=== PATIENT | female | born 1980 | race Caucasian/White ===

== ENCOUNTER 2018-06-04 11:07 | Emergency (ER) | payer MEDICAID, OTHER ==
--- NOTE | 2018-06-04 11:15 | ERPHSYRPT ---
- History of Present Illness Time Seen by Provider: 06/04/18 11:14 Historian: patient, family Exam Limitations: no limitations Physician History: 38 y/o white female former methamphetamine abuser and who smokes marijuana frequently, presents with 4 to 5 day h/o worseing bilateral lower abd pain right worse than left. pts on intraabd surgery was a btl. Timing/Duration: day(s) ( 4 to 5 ) Activities at Onset: none Quality: sharpness Abdominal Pain Onset Location: RLQ, LLQ Pain Radiation: groin (right) Severity of Pain-Max: moderate Severity of Pain-Current: moderate Modifying Factors: Improves With: movement, palpation (worsens). Worsens With: coughing, urinating, vomiting Associated Symptoms: diarrhea, No back, No chest pain, No diaphoresis, No fever/ chills Previous symptoms: no prior history Allergies/Adverse Reactions: Penicillins Allergy (Verified 06/04/18 11:27) povidone-iodine [From Betadine] Allergy (Verified 06/04/18 11:27) soap [From Betadine] Allergy (Verified 06/04/18 11:27) venom-honey bee Allergy (Verified 06/04/18 11:27) - Review of Systems Constitutional: No Symptoms, No Fever, No Chills Eyes: No Symptoms Ears, Nose, & Throat: No Symptoms, Other (poor dentition) Respiratory: No Symptoms, No Cough, No Dyspnea on Exertion (ACUÑA), No Stridor, No Wheezing Cardiac: No Symptoms, No Chest Pain, No Palpitations, No Syncope Abdominal/Gastrointestinal: Abdominal Pain (blq right worse than left), Diarrhea Genitourinary Symptoms: No Symptoms, No Dysuria, No Frequency, No Hematuria Musculoskeletal: No Symptoms Skin: No Symptoms Neurological: No Symptoms, No Dizziness Psychological: No Symptoms, No Anxiety Endocrine: No Symptoms Hematologic/Lymphatic: No Symptoms Immunological/Allergic: No Symptoms All Other Systems: Reviewed and Negative - Past Medical History Neurological History: No Pertinent History ENT History: No Pertinent History Cardiac History: No Pertinent History Respiratory History: No Pertinent History Endocrine Medical History: No Pertinent History Musculoskeletal History: No Pertinent History GI Medical History: No Pertinent History History: No Pertinent History Psycho-Social History: No Pertinent History Female Reproductive Disorders: No Pertinent History - Past Surgical History Neuro Surgical History: No Pertinent History Cardiac: No Pertinent History Respiratory: No Pertinent History Gastrointestinal: No Pertinent History Genitourinary: No Pertinent History Musculoskeletal: No Pertinent History Female Surgical History: Tubal Ligation - Social History Drug Use: marijuana, methamphetamines (former) Significant Family History: no pertinent family hx - Nursing Vital Signs Nursing Vital Signs: Initial Vital Signs Temperature 98.7 F 06/04/18 11:12 Pulse Rate 91 H 06/04/18 11:12 Respiratory Rate 18 06/04/18 11:12 Blood Pressure 114/86 06/04/18 11:12 O2 Sat by Pulse Oximetry 97 06/04/18 11:12 Pain Scale Pain Intensity 8 - Physical Exam General Appearance: mild distress, alert, anxiety Eye Exam: PERRL/EOMI, eyes nml inspection Ears, Nose, Throat Exam: normal ENT inspection Neck Exam: normal inspection, non-tender, supple, full range of motion Respiratory Exam: normal breath sounds, lungs clear, airway intact, No chest tenderness, No respiratory distress, No accessory muscle use, No wheezing, No stridor Cardiovascular Exam: regular rate/rhythm, normal heart sounds, normal peripheral pulses Gastrointestinal/Abdomen Exam: soft, normal bowel sounds, tenderness (blq right > left), guarding (right side), No rebound Pelvic Exam: not done Rectal Exam: not done Back Exam: normal inspection, normal range of motion, No CVA tenderness, No vertebral tenderness Extremity Exam: normal inspection, normal range of motion, pelvis stable Neurologic Exam: alert, oriented x 3, cooperative, 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 Skin Exam: normal color, warm, dry Lymphatic Exam: No adenopathy SpO2 Interpretation: normal Oxygen Delivery: Room Air - Course Nursing assessment & vital signs reviewed: Yes Ordered Tests: Active Orders 24 hr Category Date Time Status Clean Catch Urine Specimen STAT Care 06/04/18 11:33 Active IV Insertion STAT Care 06/04/18 11:33 Active ABDOMEN AND PELVIS W CONTRAST [CT] Stat Exams 06/04/18 11:33 Completed AMYLASE Stat Lab 06/04/18 11:43 Completed CBC W DIFF Stat Lab 06/04/18 11:43 Completed CMP Stat Lab 06/04/18 11:43 Completed CULTURE,URINE Stat Lab 06/04/18 11:59 Received LIPASE Stat Lab 06/04/18 11:43 Completed Lactic Acid Stat Lab 06/04/18 11:33 Completed UA W/ MICROSCOPIC Stat Lab 06/04/18 11:59 Completed Medication Summary Generic Name Dose Route Start Last Admin Trade Name Tirso PRN Reason Stop Dose Admin Ceftriaxone Sodium/Dextrose 1 g in 50 mls @ 100 mls/hr 06/04/18 13:29 Rocephin 1 Gm-D5w 50 Ml Bag IV 06/04/18 13:58 STAT STA Discontinued Medications Generic Name Dose Route Start Last Admin Trade Name Tirso PRN Reason Stop Dose Admin Hydromorphone HCl 0.5 mg 06/04/18 11:33 06/04/18 11:50 Hydromorphone 1 Mg/Ml Ampule IV 06/04/18 11:34 0.5 mg STAT ONE Administration Hydromorphone HCl Confirm 06/04/18 11:47 Hydromorphone 1 Mg/Ml Ampule Administered 06/04/18 11:48 Dose 1 mg .ROUTE .STK-MED ONE Hydromorphone HCl 0.5 mg 06/04/18 13:30 Hydromorphone 1 Mg/Ml Ampule IV 06/04/18 13:31 STAT ONE Sodium Chloride 1,000 mls @ 999 mls/hr 06/04/18 11:33 06/04/18 11:48 Sodium Chloride 0.9% 1000 Ml IV 06/04/18 12:33 999 mls/hr .Q1H1M STA Administration Sodium Chloride Confirm 06/04/18 11:47 Sodium Chloride 0.9% 1000 Ml Administered 06/04/18 11:48 Dose 1,000 mls @ ud .ROUTE .STK-MED ONE Ondansetron HCl 4 mg 06/04/18 11:33 06/04/18 11:49 Zofran 4 Mg/2 Ml Vial IV 06/04/18 11:34 4 mg STAT ONE Administration Ondansetron HCl Confirm 06/04/18 11:45 Zofran 4 Mg/2 Ml Vial Administered 06/04/18 11:46 Dose 4 mg .ROUTE .STK-MED ONE Lab/Rad Data: Laboratory Result Diagrams 06/04/18 11:43 06/04/18 11:43 Laboratory Results 06/04/18 06/04/18 06/04/18 Range/Units 11:59 11:43 11:43 WBC 13.6 H (4.0-10.5) K/mm3 RBC 3.89 L (4.1-5.4) M/mm3 Hgb 11.9 L (12.0-16.0) gm/dl Hct 36.4 (35-47) % MCV 93.6 (78-100) fl MCH 30.5 (26-32) pg MCHC 32.7 (32-36) g/dl RDW 14.9 H (11.5-14.0) % Plt Count 269 (150-450) K/mm3 MPV 10.3 H (6-9.5) fl Gran % 62.1 (36.0-66.0) % Eos # (Auto) 0.14 (0-0.5) Absolute Lymphs (auto) 3.57 (1.0-4.6) Absolute Monos (auto) 1.41 H (0.0-1.3) Lymphocytes % 26.2 (24.0-44.0) % Monocytes % 10.4 (0.0-12.0) % Eosinophils % 1.0 (0.00-5.0) % Basophils % 0.3 (0.0-0.4) % Absolute Granulocytes 8.45 H (1.4-6.9) Basophils # 0.04 (0-0.4) Sodium 142 (137-145) mmol/L Potassium 4.0 (3.5-5.1) mmol/L Chloride 108 H (98-107) mmol/L Carbon Dioxide 25 (22-30) mmol/L Anion Gap 12.9 (5-15) MEQ/L BUN 12 (7-17) mg/dL Creatinine 0.64 (0.52-1.04) mg/dL Estimated GFR > 60.0 ML/MIN Glucose 96 (74-106) mg/dL Lactic Acid (0.4-2.0) Calcium 9.0 (8.4-10.2) mg/dL Total Bilirubin 0.20 (0.2-1.3) mg/dL AST 32 (14-36) U/L ALT 50 H (0-35) U/L Alkaline Phosphatase 83 (38-126) U/L Serum Total Protein 7.9 (6.3-8.2) g/dL Albumin 4.1 (3.5-5.0) g/dL Amylase 48 (30-110) U/L Lipase 99 (23-300) U/L Ur Collection Type CCMS Urine Color YELLOW (YELLOW) Urine Appearance CLEAR (CLEAR) Urine pH 5.0 (5-6) Ur Specific [place] 1.025 (1.005-1.025) Urine Protein NEGATIVE (Negative) Urine Ketones NEGATIVE (NEGATIVE) Urine Blood TRACE NON-HEM (0-5) [place]/ul Urine Nitrite NEGATIVE (NEGATIVE) Urine Bilirubin NEGATIVE (NEGATIVE) Urine Urobilinogen NORMAL (0-1) mg/dL Ur Leukocyte Esterase TRACE (NEGATIVE) Urine Microscopic RBC 0-2 (0-2) /HPF Urine Microscopic WBC 0-2 (0-5) /HPF Ur Epithelial Cells MODERATE (FEW) /HPF Urine Bacteria RARE (NEGATIVE) /HPF Urine Culture Reflexed YES (NO) Urine Glucose NEGATIVE (NEGATIVE) mg/dL Specimen Received 06-04-18 1220 06/04/18 Range/Units 11:33 WBC (4.0-10.5) K/mm3 RBC (4.1-5.4) M/mm3 Hgb (12.0-16.0) gm/dl Hct (35-47) % MCV (78-100) fl MCH (26-32) pg MCHC (32-36) g/dl RDW (11.5-14.0) % Plt Count (150-450) K/mm3 MPV (6-9.5) fl Gran % (36.0-66.0) % Eos # (Auto) (0-0.5) Absolute Lymphs (auto) (1.0-4.6) Absolute Monos (auto) (0.0-1.3) Lymphocytes % (24.0-44.0) % Monocytes % (0.0-12.0) % Eosinophils % (0.00-5.0) % Basophils % (0.0-0.4) % Absolute Granulocytes (1.4-6.9) Basophils # (0-0.4) Sodium (137-145) mmol/L Potassium (3.5-5.1) mmol/L Chloride (98-107) mmol/L Carbon Dioxide (22-30) mmol/L Anion Gap (5-15) MEQ/L BUN (7-17) mg/dL Creatinine (0.52-1.04) mg/dL Estimated GFR ML/MIN Glucose (74-106) mg/dL Lactic Acid 1.4 (0.4-2.0) Calcium (8.4-10.2) mg/dL Total Bilirubin (0.2-1.3) mg/dL AST (14-36) U/L ALT (0-35) U/L Alkaline Phosphatase (38-126) U/L Serum Total Protein (6.3-8.2) g/dL Albumin (3.5-5.0) g/dL Amylase (30-110) U/L Lipase (23-300) U/L Ur Collection Type Urine Color (YELLOW) Urine Appearance (CLEAR) Urine pH (5-6) Ur Specific [place] (1.005-1.025) Urine Protein (Negative) Urine Ketones (NEGATIVE) Urine Blood (0-5) [place]/ul Urine Nitrite (NEGATIVE) Urine Bilirubin (NEGATIVE) Urine Urobilinogen (0-1) mg/dL Ur Leukocyte Esterase (NEGATIVE) Urine Microscopic RBC (0-2) /HPF Urine Microscopic WBC (0-5) /HPF Ur Epithelial Cells (FEW) /HPF Urine Bacteria (NEGATIVE) /HPF Urine Culture Reflexed (NO) Urine Glucose (NEGATIVE) mg/dL Specimen Received ct scan abd/pelvis-possible ovarian cyst rupture with culdesac fluid - Progress Progress: improved, pain not gone completely Progress Note: 06/04/18 13:33 will tx pts uti with rocephin and will d/c pt to home with rx for cipro and flagyl Counseled pt/family regarding: lab results, diagnosis, need for follow-up, rad results - Departure Time of Disposition: 13:34 Departure Disposition: Home Clinical Impression: Abdominal pain, UTI (urinary tract infection) Condition: Stable Critical Care Time: No Additional Instructions: drink plenty of fluids. add ibuprofen for pain. follow up with primary doctor for further management Prescriptions: Hydrocodone/APAP 5/325 [[place] 5/325 mg] 1 each PO [id number] PRN #4 tablet MDD 2 PRN Reason: Pain Ciprofloxacin [Cipro 500 MG] 500 mg PO BID #14 tablet Metronidazole 500 mg [Flagyl 500 MG] 500 mg PO TID #21 tablet
[2018-06-04 11:26] VITALS: O2SAT 97
[2018-06-04] MEDS ORDERED: Zofran 4 MG/2 ML VIAL IV ONE (11:33)
[2018-06-04] MEDS ORDERED: Hydromorphone 1 mg/ml Ampule IV ONE ×2 (11:33→13:30)
[2018-06-04] MEDS ORDERED: Sodium Chloride 0.9% 1000 ML 1,000 ML IV STA (11:33)
[2018-06-04] MEDS ORDERED: Zofran 4 MG/2 ML VIAL ONE (11:45)
[2018-06-04 11:46] LABS: BASOPHIL % 0.3 % (0.0-0.4); Basophil (Absolute #) 0.04 (0-0.4); Eosinophil (Absolute #) 0.14 (0-0.5); Granulocyte Absolute (ANC) 8.45 (1.4-6.9); Granulocytes % 62.1 % (36.0-66.0); Hematocrit 36.4 % (35-47); Hemoglobin 11.9 gm/dl (12.0-16.0); Lymphocyte (Absolute #) 3.57 (1.0-4.6); Lymphocytes % 26.2 % (24.0-44.0); Mean Cell Volume 93.6 fl (78-100); Mean Corpuscular Hemoglobin 30.5 pg (26-32); Mean Corpuscular Hgb Concent. 32.7 g/dl (32-36); Mean Platelet Volume 10.3 fl (6-9.5); Monocyte (Absolute #) 1.41 (0.0-1.3); Monocytes % 10.4 % (0.0-12.0); Platelet Count 269 K/mm3 (150-450); Red Blood Count 3.89 M/mm3 (4.1-5.4); Red Cell Distribution Width 14.9 % (11.5-14.0); White Blood Count 13.6 K/mm3 (4.0-10.5)
[2018-06-04] MEDS ORDERED: Sodium Chloride 0.9% 1000 ML 1,000 ML ONE (11:47)
[2018-06-04] MEDS ORDERED: Hydromorphone 1 mg/ml Ampule ONE ×2 (11:47→13:35)
[2018-06-04 12:12] LABS: ALBUMIN 4.1 g/dL (3.5-5.0); ALKALINE PHOSPHATASE 83 U/L (38-126); AMYLASE 48 U/L (30-110); ANION GAP 12.9 MEQ/L (5-15); BLOOD UREA NITROGEN 12 mg/dL (7-17); CHLORIDE 108 mmol/L (98-107); Carbon Dioxide 25 mmol/L (22-30); Creatinine 1 0.64 mg/dL (0.52-1.04); Glucose 96 mg/dL (74-106); LIPASE 99 U/L (23-300); SGOT/AST 32 U/L (14-36); SGPT/ALT 50 U/L (0-35); SODIUM 142 mmol/L (137-145); Total Protein 7.9 g/dL (6.3-8.2)
[2018-06-04 12:23] LABS: Appearance CLEAR (CLEAR); Bacteria RARE /HPF (NEGATIVE); Bilirubin NEGATIVE (NEGATIVE); Blood TRACE NON-HEM Ery/ul (0-5); Epithelial Cells MODERATE /HPF (FEW); Glucose NEGATIVE (NEGATIVE); Ketones NEGATIVE (NEGATIVE); Leukocyte Esterase TRACE (NEGATIVE); Nitrite NEGATIVE (NEGATIVE); Protein,Urine Dip NEGATIVE (Negative); RBC 0-2 /HPF (0-2); Specific Gravity 1.025 (1.005-1.025); Urobilinogen NORMAL mg/dL (0-1); WBC 0-2 /HPF (0-5)
--- NOTE | 2018-06-04 12:36 | XRAY ---
Indication: Right lower abdomen/pelvic pain. Multiple contiguous axial images obtained through the abdomen and pelvis using 80 cc Isovue 370 contrast only. Comparison: None Lung bases demonstrates mild left base dependent atelectasis/scarring, tiny calcified granuloma, and tiny effusion. Right lung base clear. Heart is not enlarged. Noncontrasted stomach and bowel loops appear nonobstructed. Normal appendix. Right ovary demonstrates cysts, largest 1.9 cm. Small cul-de-sac fluid presumed from ruptured/leaking cyst. No free air. Remaining liver, gallbladder, pancreas, spleen, adrenal glands, kidneys, ureters, bladder, uterus, and aorta appear unremarkable. No pathologic retroperitoneal lymphadenopathy. Osseous structures intact with mild degenerative changes throughout the spine. No ventral or inguinal hernias. Impression: 1. Dominant 1.9 cm right ovary cyst. Small cul-de-sac fluid presumed physiologic. 2. Tiny left lung base effusion. 3. Remaining CT abdomen/pelvis with contrast exam is negative. CT DI 22.56
[2018-06-04 13:06] VITALS: BP 122/82
[2018-06-04] MEDS ORDERED: ROCEPHIN 1 Gm-D5w 50 ml Bag** 1 G/50 ML IVPB IV STA (13:29)
[2018-06-04] MEDS ORDERED: ROCEPHIN 1 Gm-D5w 50 ml Bag** 1 G/50 ML IVPB IV ONE (13:36)
[2018-06-04 14:00] VITALS: PULSE 65
== END 2018-06-04 14:18 | disposition home or self-care (01) ==
LOC: ED 11:07
DX: R10.31 Right lower quadrant pain (principal); R10.32 Left lower quadrant pain; N39.0 Urinary tract infection, site not specified
CPT/HCPCS: 36000; 36415; 74177; 80053; 81000; 82150; 83605; 83690; 85025; 87086; 96360; 96365; 96374; 96375; 96376; 99284; J0696; J1170; J2405